=== PATIENT | male | born 2000 | race African-American/Black ===

== ENCOUNTER 2022-10-10 16:24 | Emergency (ER) | payer MEDICAID, OTHER ==
[~2022-10-10] VITALS: Ht 167.6 cm; Wt 63.6 kg
[2022-10-10 16:36] VITALS: BP 138/75
[2022-10-10 17:56] LABS: COVID AG,FIA SOURCE NASOPHARYNGEAL
[2022-10-10 18:25] LABS: INFLUENZA TYPE B NEGATIVE FOR TYPE B (NEGATIVE)
[2022-10-10 18:27] LABS: INFLUENZA TYPE A POSITIVE FOR TYPE A (NEGATIVE)
[2022-10-10] MEDS ORDERED: ACET-66 PO (18:38)
[2022-10-10] MEDS ORDERED: IBUP-1554 PO (18:38)
[2022-10-10] MEDS ORDERED: GUAIFDM PO (18:38)
== END 2022-10-10 18:50 | disposition home or self-care (01) ==
LOC: EMS 16:28
DX: J06.9 Acute upper respiratory infection, unspecified (principal); F17.210 Nicotine dependence, cigarettes, uncomplicated; Z20.822 Contact with and (suspected) exposure to COVID-19
CPT/HCPCS: 87804; 99283